=== PATIENT | male | born 1930 | race Caucasian/White ===

== ENCOUNTER 2016-04-10 11:14 | Emergency (ER) | payer OTHER ==
[~2016-04-10] VITALS: Ht 177.8 cm; Wt 79.4 kg
[~2016-04-10 11:14] MED LIST: ACETAMINOPHEN325 M1 PO; ACIDOPHILUS1 EAC3 PO; ANUCORT-HC25 MG RECTAL; ASPIR 8181 MG PO; ASPIRIN EC325 M1 PO; AUGMENTIN 875875 MG PO; B12INJ SL; BACTRIM DS TAB1 EACH PO; BELLADONNA-OPI1 EACH RC; BYSTOLIC 5 MG5 M1 PO; CEFDINIR300 MG PO; CEFTIN 250 MG250 MG PO; CIPROFLOXACIN500 M1 PO; CRANBERRY400 MG PO; CULTURELLE CAP1 EAC1 PO; CYANOCOBALAM1000 MCG PO; DUONEB 2.5-0.5 M3 ML; DUONEB 2.5-0.5 M3 ML INH; FLOMAX PO; GLUCOSAMINE1000 MG PO; HYDROCODONE-AP1 EAC6 PO; HYDROCORTISONE30 G9 RECTAL; HYDROGEN PEROX480 M1 TOP; IRON325 PO; KLOR-CON 1010 MEQ PO; LASIX 40 MG TAB40 M1 PO; LISINOPRIL10 MG PO; MAGNESIUM OXID400 MG PO; MELATONIN1 MG PO; MELOXICAM7.5 MG PO; NYSTATIN15 G2 TP; PLAVIX 75 MG TA75 M1 PO; PROTONIX40 M1 PO; PYRIDIUM200 MG PO; RAPAFLO4 MG PO; SEROQUEL 25 MG25 M1 PO; TRAMADOL 50 MG50 MG PO; TRAZODONE HCL50 MG PO; TYLENOL325 MG PO; VESICARE 5 MG TA5 MG PO; VITAMIN B-12500 MCG PO; VITAMIN D350000 UNIT PO; VOLTAREN GEL 1100 G2 TOP; ZOCOR 20 MG TAB20 M1 PO; ZOSYN 3.3753.375 GM IV; [UNRECOGNIZED DRUG - OTHER] PO
[2016-04-10 11:25] LABS: URINE BILIRUBIN NEGATIVE (Negative); URINE BLOOD 3+ (Negative); URINE COLOR YELLOW; URINE GLUCOSE-RANDOM* NEGATIVE (Negative); URINE KETONES NEGATIVE (Negative); URINE NITRITE NEGATIVE (Negative); URINE PROTEIN (DIPSTICK) 1+ (Negative); URINE SPECIFIC GRAVITY 1.015 (1.003-1.035); URINE UROBILINOGEN 0.2 E.U./dl (0.2-1.0)
[2016-04-10 11:32] LABS: SQUAMOUS None Seen /LPF (0-3); URINE RBC >20 Many /HPF (0-2)
[2016-04-10 11:33] LABS: CASTS None Seen /LPF (None Seen); CRYSTALS None Seen /LPF (None Seen); URINE WBC 0-5 Rare /HPF (0-5)
[2016-04-10] MEDS ORDERED: LISINOPRIL2.5 MG PO (11:42)
[2016-04-10 12:15] LABS: ABSOLUTE NEUTROPHILS 4.9 thou/uL (1.4-8.2); BASOPHILS 0.8 % (0.0-2.0); HEMATOCRIT 38.7 % (42.0-52.0); HEMOGLOBIN 12.8 gm/dL (14.0-18.0); LYMPHOCYTES 15.3 % (24.0-44.0); MCHC 33.1 % (28.0-37.0); MCV 84.5 fL (80.0-100.0); MONOCYTES 11.9 % (1.0-8.0); PLATELET COUNT 135 thou/uL (150-400); RBC 4.58 mil/uL (4.50-6.00); WBC 7.3 thou/uL (4.0-11.0)
[2016-04-10 12:19] LABS: MANUAL DIFF NO
[2016-04-10 12:23] LABS: CALCIUM 8.5 mg/dL (8.5-10.1); CREATININE 1.4 mg/dL (0.6-1.3); POTASSIUM 4.2 mmol/L (3.5-5.1)
== END 2016-04-10 15:29 | disposition home or self-care (01) ==
LOC: ER 11:14
PROVIDERS: Nurse Practitioner
DX: R31.9 Hematuria, unspecified (principal); N18.3 Chronic kidney disease, stage 3 (moderate); I63.9 Cerebral infarction, unspecified; J44.9 Chronic obstructive pulmonary disease, unspecified; K21.9 Gastro-esophageal reflux disease without esophagitis; I50.9 Heart failure, unspecified; I25.10 Atherosclerotic heart disease of native coronary artery without angina pectoris; Z88.8 Allergy status to other drugs, medicaments and biological substances; Z87.891 Personal history of nicotine dependence

== ENCOUNTER 2016-06-01 16:59 | Inpatient (IN) | payer OTHER ==
[~2016-06-01] VITALS: Ht 177.8 cm; Wt 71.7 kg
--- NOTE | ~2016-06-01 | EKG ---
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 06/02/16 0912 1720 1720 Emil Millan MD, FACC /EPI
[~2016-06-01 16:59] MED LIST changes: +LISINOPRIL2.5 MG PO
[2016-06-01 17:01] VITALS: BP 112/65
[2016-06-01 17:26] LABS: HEMATOCRIT 41.3 % (42.0-52.0); HEMOGLOBIN 13.6 gm/dL (14.0-18.0); MCH 28.1 pg (26.0-34.0); MCHC 32.9 g/dL (28.0-37.0); MCV 85.4 fL (80.0-100.0); PLATELET COUNT 154 thou/uL (150-400); RBC 4.84 mil/uL (4.50-6.00); RDW 15.1 % (10.5-14.5); WBC 12.3 thou/uL (4.0-11.0)
[2016-06-01 17:29] LABS: MANUAL DIFF YES
[2016-06-01 17:31] LABS: CALCIUM 8.6 mg/dL (8.5-10.1); CREATININE 1.2 mg/dL (0.6-1.3); POTASSIUM 3.9 mmol/L (3.5-5.1)
[2016-06-01 17:35] LABS: ALBUMIN 2.9 g/dL (3.4-5.0); DIRECT BILIRUBIN 0.2 mg/dL (<0.1-0.3); TOTAL BILIRUBIN 0.7 mg/dL (<0.1-1.0); TOTAL PROTEIN 6.4 g/dL (6.4-8.2)
[2016-06-01 17:54] LABS: ABSOLUTE NEUTROPHILS 9.2 thou/uL (1.4-8.2); TOTAL CELL COUNT 100
[2016-06-01 18:40] LABS: URINE BILIRUBIN NEGATIVE (Negative); URINE BLOOD 2+ (Negative); URINE COLOR YELLOW; URINE GLUCOSE-RANDOM* NEGATIVE (Negative); URINE KETONES NEGATIVE (Negative); URINE NITRITE POSITIVE (Negative); URINE PROTEIN (DIPSTICK) NEGATIVE (Negative); URINE SPECIFIC GRAVITY 1.015 (1.003-1.035); URINE UROBILINOGEN 0.2 E.U./dl (0.2-1.0)
[2016-06-01 18:46] LABS: CASTS None Seen /LPF (None Seen); CRYSTALS None Seen /LPF (None Seen); SQUAMOUS None Seen /LPF (0-3); URINE WBC 0-5 Rare /HPF (0-5)
[2016-06-01 18:47] LABS: BACTERIA 1-9 Few /HPF (None Seen); URINE RBC 0-2 Rare /HPF (0-2)
[2016-06-01 19:37] VITALS: BP 146/61
[2016-06-01 20:19] VITALS: BP 114/47
[2016-06-01] MEDS ORDERED: MACROBID 100 M100 M3 PO (21:00)
[2016-06-01] MEDS ORDERED: ACIDOPHILUS LA1 EAC1 PO (21:01)
[2016-06-01] MEDS ORDERED: MIRALAX17 GM PO (21:02)
[2016-06-01] MEDS ORDERED: XANAX 0.25 MG0.25 MG PO (21:03)
[2016-06-01] MEDS ORDERED: VITAMIN D 5050000 I1 PO (21:05)
[2016-06-01] MEDS ORDERED: BYSTOLIC 5 MG5 M1 PO (21:05)
[2016-06-01] MEDS ORDERED: VESICARE 5 MG TA5 MG PO (21:07)
[2016-06-01] MEDS ORDERED: MAGOX 400400 MG PO (21:09)
[2016-06-01] MEDS ORDERED: MELATONIN3 MG PO (21:10)
[2016-06-01] MEDS ORDERED: VITAMIN B-12500 MCG PO (21:11)
[2016-06-01 23:49] VITALS: BP 133/50
[2016-06-02 03:42] VITALS: BP 113/36
[2016-06-02 05:14] LABS: HEMATOCRIT 40.3 % (42.0-52.0); HEMOGLOBIN 13.2 gm/dL (14.0-18.0); MCHC 32.8 g/dL (28.0-37.0); MCV 85.5 fL (80.0-100.0); RBC 4.71 mil/uL (4.50-6.00); RDW 15.2 % (10.5-14.5); WBC 8.4 thou/uL (4.0-11.0)
[2016-06-02 05:27] LABS: ALBUMIN 2.6 g/dL (3.4-5.0); CALCIUM 8.3 mg/dL (8.5-10.1); CREATININE 1.1 mg/dL (0.6-1.3); POTASSIUM 3.9 mmol/L (3.5-5.1); TOTAL BILIRUBIN 0.9 mg/dL (<0.1-1.0); TOTAL PROTEIN 5.7 g/dL (6.4-8.2)
[2016-06-02 05:52] LABS: TSH 1.176 uIU/mL (0.358-3.740)
[2016-06-02 08:00] VITALS: BP 150/61
[2016-06-02 12:00] VITALS: BP 170/77
[2016-06-02 16:00] VITALS: BP 142/59
[2016-06-02 19:30] VITALS: BP 136/70
[2016-06-03 03:33] VITALS: BP 148/65
[2016-06-03 09:49] LABS: HEMATOCRIT 41.3 % (42.0-52.0); MCH 28.7 pg (26.0-34.0); MCHC 33.8 g/dL (28.0-37.0); MCV 84.9 fL (80.0-100.0); RBC 4.87 mil/uL (4.50-6.00); WBC 9.5 thou/uL (4.0-11.0)
[2016-06-03 09:59] LABS: CALCIUM 8.4 mg/dL (8.5-10.1); CREATININE 1.2 mg/dL (0.6-1.3)
[2016-06-03 11:55] VITALS: BP 116/60
[2016-06-03 19:21] VITALS: BP 140/72
[2016-06-04 04:00] VITALS: BP 132/61
[2016-06-04 05:37] LABS: HEMATOCRIT 42.2 % (42.0-52.0); HEMOGLOBIN 14.1 gm/dL (14.0-18.0); MCH 28.4 pg (26.0-34.0); MCHC 33.4 g/dL (28.0-37.0); RBC 4.97 mil/uL (4.50-6.00); RDW 15.2 % (10.5-14.5); WBC 9.2 thou/uL (4.0-11.0)
[2016-06-04 06:04] LABS: CALCIUM 8.5 mg/dL (8.5-10.1); CREATININE 1.1 mg/dL (0.6-1.3); POTASSIUM 3.9 mmol/L (3.5-5.1)
[2016-06-04 11:45] VITALS: BP 130/60
[2016-06-04 16:00] VITALS: BP 150/94
[2016-06-04 21:04] VITALS: BP 140/67
[2016-06-05 04:52] VITALS: BP 147/56
[2016-06-05 08:00] VITALS: BP 181/89
[2016-06-05] MEDS ORDERED: AUGMENTIN 875875 MG PO (11:31)
[2016-06-05] MEDS ORDERED: DUONEB 2.5-0.5 M3 ML INH (11:31)
[2016-06-05] MEDS ORDERED: LEVAQUIN 750 M750 MG PO (11:31)
[2016-06-05 11:35] VITALS: BP 162/86
== END 2016-06-05 15:56 | DRG 177 ==
LOC: ER 16:59 → EROBS 18:56 → 4S 18:56
PROVIDERS: Hospitalist; Nurse Practitioner
DX: J69.0 Pneumonitis due to inhalation of food and vomit (principal); J96.21 Acute and chronic respiratory failure with hypoxia; G92 Toxic encephalopathy; I13.0 Hypertensive heart and chronic kidney disease with heart failure and stage 1 through stage 4 chronic kidney disease, or unspecified chronic kidney disease; N39.0 Urinary tract infection, site not specified; T83.511A Infection and inflammatory reaction due to indwelling urethral catheter, initial encounter; G62.9 Polyneuropathy, unspecified; J44.9 Chronic obstructive pulmonary disease, unspecified; K21.9 Gastro-esophageal reflux disease without esophagitis; N40.0 Benign prostatic hyperplasia without lower urinary tract symptoms; N18.3 Chronic kidney disease, stage 3 (moderate); I50.9 Heart failure, unspecified; F03.90 Unspecified dementia, unspecified severity, without behavioral disturbance, psychotic disturbance, mood disturbance, and anxiety; I25.10 Atherosclerotic heart disease of native coronary artery without angina pectoris; Z79.82 Long term (current) use of aspirin; Z90.49 Acquired absence of other specified parts of digestive tract; Z86.73 Personal history of transient ischemic attack (TIA), and cerebral infarction without residual deficits; Z87.891 Personal history of nicotine dependence; Z95.5 Presence of coronary angioplasty implant and graft; Z88.8 Allergy status to other drugs, medicaments and biological substances; Z79.899 Other long term (current) drug therapy; Z82.49 Family history of ischemic heart disease and other diseases of the circulatory system; Z81.8 Family history of other mental and behavioral disorders
CPT/HCPCS: 10100

== ENCOUNTER 2016-09-22 14:39 | Emergency (ER) | payer OTHER ==
[~2016-09-22] VITALS: Ht 167.6 cm; Wt 77.6 kg
[~2016-09-22 14:39] MED LIST changes: +ACIDOPHILUS LA1 EAC1 PO; +LEVAQUIN 750 M750 MG PO; +MACROBID 100 M100 M3 PO; +MAGOX 400400 MG PO; +MELATONIN3 MG PO; +MIRALAX17 GM PO; +VITAMIN D 5050000 I1 PO; +XANAX 0.25 MG0.25 MG PO
[2016-09-22] MEDS ORDERED: BUSPIRONE HCL10 MG PO (15:37)
[2016-09-22] MEDS ORDERED: ATENOLOL 25 MG25 M1 PO (15:37)
[2016-09-22 16:49] LABS: URINE BILIRUBIN NEGATIVE (Negative); URINE BLOOD 3+ (Negative); URINE COLOR RED; URINE GLUCOSE-RANDOM* NEGATIVE (Negative); URINE KETONES NEGATIVE (Negative); URINE LEUKOCYTES-REFLEX 3+ (Negative); URINE PROTEIN (DIPSTICK) 2+ (Negative); URINE SPECIFIC GRAVITY 1.015 (1.003-1.035)
[2016-09-22] MEDS ORDERED: OXYBUTYNIN 5 MG5 M2 PO (17:19)
[2016-09-22] MEDS ORDERED: KEFLEX500 MG PO (17:19)
[2016-09-22 17:28] LABS: CASTS None Seen /LPF (None Seen); CRYSTALS None Seen /LPF (None Seen); SQUAMOUS 0-3 Few /LPF (0-3); URINE RBC >20 Many /HPF (0-2); URINE WBC-REFLEX >25 Many /HPF (0-5)
== END 2016-09-22 17:32 | disposition home or self-care (01) ==
LOC: ER 14:39
PROVIDERS: Physician Assistant
DX: T83.098A Other mechanical complication of other urinary catheter, initial encounter (principal); N39.0 Urinary tract infection, site not specified; I13.0 Hypertensive heart and chronic kidney disease with heart failure and stage 1 through stage 4 chronic kidney disease, or unspecified chronic kidney disease; N18.3 Chronic kidney disease, stage 3 (moderate); I50.9 Heart failure, unspecified; N17.9 Acute kidney failure, unspecified; J44.9 Chronic obstructive pulmonary disease, unspecified; K21.9 Gastro-esophageal reflux disease without esophagitis; I25.10 Atherosclerotic heart disease of native coronary artery without angina pectoris; F03.90 Unspecified dementia, unspecified severity, without behavioral disturbance, psychotic disturbance, mood disturbance, and anxiety; F10.99 Alcohol use, unspecified with unspecified alcohol-induced disorder; Z86.73 Personal history of transient ischemic attack (TIA), and cerebral infarction without residual deficits; Z95.5 Presence of coronary angioplasty implant and graft; Z88.8 Allergy status to other drugs, medicaments and biological substances; Z87.891 Personal history of nicotine dependence; Y84.8 Other medical procedures as the cause of abnormal reaction of the patient, or of later complication, without mention of misadventure at the time of the procedure; Y92.89 Other specified places as the place of occurrence of the external cause